=== PATIENT | male | born 1990 | race Caucasian/White ===

== ENCOUNTER 2021-05-18 18:06 | Emergency (ER) | payer OTHER ==
[~2021-05-18] VITALS: Ht 180.3 cm; Wt 85.2 kg
[2021-05-18 18:20] VITALS: BP 126/79
[2021-05-18] MEDS ORDERED: LIDOCAINE/EPI/TETRACAINE TOPICAL GEL 3 ML. TP ONE (18:30)
--- NOTE | 2021-05-18 18:31 | PHYS DOC ---
Adult General Chief Complaint Chief Complaint: LACERATION/AVULSION HPI HPI Patient is a 31-year-old male, in the , up-to-date on immunizations who presents with a left thumb tip laceration that happened just before coming in as he was cutting vegetables at home. Denies any other injuries. Pain is 3 out of 10, sharp in nature. Review of Systems Review of Systems Review of systems otherwise unremarkable except noted in HPI Allergies Allergies Allergies Coded Allergies Type Severity Reaction Last Updated Verified No Known Drug Allergies 05/18/21 No Physical Exam Physical Exam Constitutional: Well developed, well nourished, no acute distress, non-toxic appearance. [] HENT: Normocephalic, atraumatic, Skin: Warm, dry, no erythema, no rash. [] Extremities: 1 cm linear superficial laceration at the tip of the left on the palm side, neurovascular exam intact, fingernail intact. Neurologic: Alert and oriented X 3, no focal deficits noted. [] Psychologic: Affect normal, judgement normal, mood normal. [] EKG EKG [] Radiology/Procedures Radiology/Procedures Thumb laceration of approximately 1 cm. Superficial. Wound cleaned. No need for sutures. L ET placed for topical anesthesia. Wound cleaned again. Dermabond placed. Bandaged. [] Heart Score C/O Chest Pain: No Risk Factors: Risk Factors: DM, Current or recent (<one month) smoker, HTN, HLP, family history of CAD, obesity. Risk Scores: Risk Factors: DM, Current or recent (<one month) smoker, HTN, HLP, family history of CAD, obesity. Course & Med Decision Making Course & Med Decision Making Patient is a 31-year-old male who presents with thumb laceration Vital signs not concerning. Physical exam noted above. Direct pressure placed. Washed wound. L ET placed for topical anesthesia. No need for sutures, Dermabond check. Discussed all findings with patient. Gave wound care instructions. Advised to follow-up with primary care next week for wound reevaluation. Gave return precautions to the ED. Patient grateful, verbalized understanding and agreed with plan of discharge. [] Dragon Disclaimer Dragon Disclaimer This electronic medical record was generated, in whole or in part, using a voice recognition dictation system. Departure Departure: Impression: Primary Impression: Thumb laceration Disposition: HOME / SELF CARE / HOMELESS Condition: GOOD Referrals: NAT SYLVESTER DO (PCP) Patient Instructions: Tissue Adhesive Wound Care Additional Instructions: Thank you for coming into the emergency department and allowing us to take care of you. Please read all the attached information carefully to go over care at home. You can use Tylenol, ibuprofen and ice as needed at home for pain control. Please keep the area clean and dry and bandaged. Please follow-up with your primary care physician in the morning to set up follow-up. Please come back to the ED with new or concerning symptoms as discussed. BARON HARRY MD May 18, 2021 18:31
[2021-05-18] MEDS ORDERED: ACETAMINOPHEN 500 MG TABLET PO ONE (19:00)
== END 2021-05-18 19:20 | disposition home or self-care (01) ==
LOC: ER 18:06
DX: S61.012A Laceration without foreign body of left thumb without damage to nail, initial encounter (principal); W26.8XXA Contact with other sharp object(s), not elsewhere classified, initial encounter; Y93.89 Activity, other specified; Y92.89 Other specified places as the place of occurrence of the external cause; Y99.8 Other external cause status
CPT/HCPCS: 12001; 99282